=== PATIENT | female | born 1995 | race Hispanic/Latino ===

== ENCOUNTER 2017-06-16 20:43 | Inpatient (IN) | payer OTHER ==
[2017-06-16 20:59] VITALS: BMI 23.7
[2017-06-16] MEDS ORDERED: Lactated Ringer's 1,000 ML IV SCH (21:15)
[2017-06-16 21:48] LABS: BASO % 0.4 % (0.0-2.0); EOS # 0.1 K/uL (0.0-0.7); EOS % 0.5 % (0.0-4.0); HEMOGLOBIN 9.7 g/dL (12.0-16.0); LYMPH # 1.6 K/uL (1.0-4.3); LYMPH % 13.3 % (20.0-40.0); MEAN CELL VOLUME 76.2 fl (81.0-99.0); MEAN CORPUSCULAR HEMOGLOBIN 24.4 pg (27.0-31.0); MEAN CORPUSCULAR HGB CONC 32.1 g/dL (33.0-37.0); MEAN PLATELET VOLUME 8.6 fl (7.2-11.7); MONO # 0.7 K/uL (0.0-0.8); NEUT # 9.4 K/uL (1.8-7.0); NEUT % 79.8 % (50.0-75.0); NRBC % 0.1 % (0.0-0.0); RBC 3.98 Mil/uL (3.80-5.20); RED CELL DISTRIBUTION WIDTH 16.1 % (11.5-14.5); WHITE BLOOD COUNT 11.7 K/uL (4.8-10.8)
[2017-06-16 22:05] VITALS: O2SAT 100
[2017-06-17] MEDS: Lactated Ringer's 1,000 ML IV SCH ×2 (03:55→04:15)
[2017-06-17] MEDS ORDERED: Fentanyl/Bupivacaine HCl 125 ML EPI ONE (04:46)
[2017-06-17] MEDS ORDERED: Bupivacaine HCl 0.25% PF (10 ml) Inj ONE (05:10)
--- NOTE | 2017-06-17 08:05 | OBPN ---
Datetime: 06/17/2017 07:30 IP Progress Impression: Reassuring heart rate IP Informed Consent Obtain: Vaginal Delivery; Risks, Benefits and Alternatives Discussed IP Procedures: Artificial ROM IP Progress Plan: Continue present management; Augmentation Pool Provider: Positive Membranes, Provider: Ruptured Amniotic Fluid Color, Provider: Clear Contraction Comments Provider: 2-3m FHR - Baseline A Provider: 120 Presentation-Admit: Vertex IP Progress Note Comment: Last night she statrted to have CTX pain and rec'd epidural. Pitocin at 4 miu/h currently A: Latent phase of labor PLAN Discussion with pt and she agreed...AROM and clear Fluid noted for augmentation NICHD Accel Fetus A IP Provider: 15X15 FHR Category Provider Fetus A: Category I NICHD Variability Prov Fetus A: Moderate 6-25bpm Dilatation, Provider: 3 Effacement, Provider: 50 Station, Provider: -1 NICHD Decel Fetus A IP Provider: None Datetime: 06/16/2017 21:07 Vital Signs Provider: Reviewed
--- NOTE | 2017-06-17 09:00 | OBHP ---
Datetime: 06/17/2017 07:30 FHR - Baseline A Provider: 120 Amniotic Fluid Color, Provider: Clear Contraction Comments Provider: 2-3m NICHD Variability Prov Fetus A: Moderate 6-25bpm NICHD Accel Fetus A IP Provider: [id number] FHR Category Provider Fetus A: Category I Dilatation, Provider: 3 Effacement, Provider: 50 Station, Provider: -1 Datetime: 06/16/2017 21:24 IP Chief Complaint Other: Polyhydramnios IP Hx Assessment: The History has been Reviewed and is Current EGA AdmitDate IP: 37.6 IP Indication for Induction: Polyhydramnios IP Chief Complaint: Uterine contractions Datetime: 06/16/2017 21:07 IP Adm Impression: Term, intrauterine ; No Active Labor; Intact Membranes IP Admit Plan: Admit to unit; Initiate labor protocol Admit Comment, IP Provider: TRIAGE NOTE: 22 y/o F at 37.6 weeks GA, BLANCA 07/01/17 by LMP 09/24/16, presents due to lower abdominal pain and intermittent uterine CTX. CTX's began a few hours ago, becoming more frequent and progressively aggravating. No LOF or VB. FM present. Pt denies fever, headache, dizziness, visual disturbances, CP, SOB, N/V, pruritus or calf tenderness -All systems reviewed and negative except as above. -NKDA -Meds: PNV -PN Care: Dr Adkins at [facility]. -PN Labs: US on 06/16/17 showed cephalic presentation, BPP 8/8, YUNIEL 33.3-polyhydramnios. GBS pendi ng. -OBHx: . 1x at FT. -PMHx: denied -PSHx: denied -FHx: NC -SHx: denies tobacco, alcohol or rec drugs. A/P 22 y/o F with IUP at 37.6 weeks GA, with CTX and polyhydramnios. --FHT continous monitoring --Admit to L and D. Case discussed with Dr Blanchard, OB transportation dispatch manager GTolentino PGY-1. OB Hospitalist on-call...Pt seen and examined...latent phase of labor/polyhydramnios - Discussion with patient about augmentatoin, medications, risks/complications, labor, delivery and . H er questoins answered Pelvic Type - PN: Adequate Extremities - PN: Normal Back - PN: Normal Lungs - PN: Normal Heart - PN: Normal Thyroid - PN: Normal Neurologic - PN: Normal HEENT - PN: Normal General - PN: Normal Presentation-Admit: Vertex Membranes, Provider: Intact Pool Provider: Negative Vital Signs Provider: Reviewed NICHD Decel Fetus A IP Provider: None Genitourinary Exam: Normal
--- NOTE | 2017-06-17 09:03 | OBADHP ---
Datetime: 06/17/2017 07:30 FHR - Baseline A Provider: 120 Amniotic Fluid Color, Provider: Clear Contraction Comments Provider: 2-3m NICHD Variability Prov Fetus A: Moderate 6-25bpm NICHD Accel Fetus A IP Provider: [id number] FHR Category Provider Fetus A: Category I Dilatation, Provider: 3 Effacement, Provider: 50 Station, Provider: -1 Datetime: 06/16/2017 21:24 IP Chief Complaint Other: Polyhydramnios Admit Comment, IP Provider: ADMISSION NOTE: 22 y/o F at 37.6 weeks GA, BLANCA 07/01/17 by LMP 09/24/16, presents due to lower abdominal pain and intermittent uterine CTX. CTX's began a few hours ago, becoming more frequent and progressively aggravating. No LOF or VB. FM present. Pt denies fever, headache, dizziness, visual disturbances, CP, SOB, N/V, pruritus or calf tenderness -All systems reviewed and negative except as above. -NKDA -Meds: PNV -PN Care: Dr Adkins at [facility]. -PN Labs: US on 06/16/17 showed cephalic presentation, BPP 8/8, YUNIEL 33.3-polyhydramnios. GBS pendi ng. -OBHx: . 1x at FT. -PMHx: denied -PSHx: denied -FHx: NC -SHx: denies tobacco, alcohol or rec drugs. A/P 22 y/o F with IUP at 37.6 weeks GA, with CTX's and polyhydramnios. --Admit to L and D. --Initiate IOL protocol --Pitocin for labor induction. Case discussed with Dr Blanchard, OB administration specialist Sal PGY-1. OB Hospitalist on-call...Pt seen and examined...latent phase of labor/polyhydramnios - Discussion with patient about augmentatoin, medications, risks/complications, labor, delivery and . Hilaria metz answered - correction EDC Apr 1 (38weeks) BREA GUERRERO Hx Assessment: The History has been Reviewed and is Current IP Chief Complaint: Uterine contractions EGA AdmitDate IP: 37.6 Datetime: 06/16/2017 21:07 Pelvic Type - PN: Adequate Extremities - PN: Normal Back - PN: Normal Lungs - PN: Normal Heart - PN: Normal Thyroid - PN: Normal Neurologic - PN: Normal HEENT - PN: Normal General - PN: Normal Presentation-Admit: Vertex Membranes, Provider: Intact Pool Provider: Negative Vital Signs Provider: Reviewed NICHD Decel Fetus A IP Provider: None Genitourinary Exam: Normal IP Adm Impression: Term, intrauterine ; No Active Labor; Intact Membranes IP Admit Plan: Admit to unit; Initiate labor protocol
--- NOTE | 2017-06-17 09:36 | OBDS ---
DELIV[facility]ERSONNEL Delivery Doctor: Ezequiel Adkins MD Administrative Program Specialist: Shani Trixie RN MATERNAL INFORMATION Delivery Anesthesia: Epidural Medications in Delivery: Pitocin 30 mu/500 mL Estimated Blood Loss (ml): 100 Placenta Cultured: No Maternal Complications: None Provider Comments: Delivered a live baby girl at 8:46 AM the baby was bulb suctioned on the perineum and transferred to the maternal chest. The cord was clamped and cut 3 vessels noted cord blood was o btained and sent to the lab. The placenta was delivered at 8:51 AM intact, the estimated blood loss w as 100 mL. There were no vaginal lacerations. The mother tolerated the procedure well the baby went t o the well baby nursery with Apgars of 9 and 9 weighing 3110 g LABOR SUMMARY EDC: 07/01/2017 00:00 No. Babies in Womb: 1 Attempted: No Labor Anesthesia: Epidural LABOR INFORMATION Reason for Induction: Polyhydramnios Onset of Labor: 06/17/2017 08:23 Complete Dilatation: 06/17/2017 08:23 Oxytocin: Induction Group B Beta Strep: Done, Result Unknown Antibiotics # of Doses: 0 Antibiotics Time of Last Dose: n/a Steroids Given: None Reason Steroids Not Administered: Not Applicable MEMBRANES Membranes Rupture Method: Artificial Rupture of Membranes: 06/17/2017 07:30 Length of Rupture (hrs): 1.27 Amniotic Fluid Color: Clear Amniotic Fluid Amount: Large STAGES OF LABOR Stage 1 hrs: 0 Stage 1 min: 0 Stage 2 hrs: 0 Stage 2 min: 23 Stage 3 hrs: 0 Stage 3 min: 5 Total Time in Labor hrs: 0 Total Time in Labor min: 28 VAGINAL DELIVERY Episiotomy: None Laceration Extension: N/A Laceration Type: None Laceration Repair: Not Applicable Initial Vag Sponge Count: 5 Final Vag Sponge Count: 5 Initial Vag Sharps Count: 0 Final Vag Sharps Count: 0 Sponge Count Correct: Yes Sharps Count Correct: N/A BABY A INFORMATION Infant Delivery Date/Time: 06/17/2017 08:46 Method of Delivery: Vaginal Born in Route : No : N/A Forceps: N/A Vacuum Extraction: N/A Shoulder Dystocia : No SHOULDER DYSTOCIA BABY A Infant Delivery Date/Time: 06/17/2017 08:46 PRESENTATION/POSITION BABY A Presentation: Cephalic Cephalic Presentation: Vertex Breech Presentation: N/A PLACENTA INFORMATION BABY A Placenta Delivery Time : 06/17/2017 08:51 Placenta Method of Delivery: Spontaneous Placenta Status: Delivered SCORES BABY A Heart Rate 1 min: >100 bpm Resp Effort 1 min: Good Cry Reflex Irritability 1 min: Cough or Sneeze or Pulls Away Muscle Tone 1 min: Active Motion Color 1 min: Body Freer, Extremities Blue Resuscitation Effort 1 min: N/A SCORE 1 MIN: 9 Heart Rate 5 min: >100 bpm Resp Effort 5 min: Good Cry Reflex Irritability 5 min: Cough or Sneeze or Pulls Away Muscle Tone 5 min: Active Motion Color 5 min: Body Freer, Extremities Blue Resuscitation Effort 5 min: N/A SCORE 5 MIN: 9 INFANT INFORMATION BABY A Gestational Age at Delivery: 38.0 Gestational Status: Term Outcome : Liveborn Infant Condition : Stable Infant Sex: Female IDENTIFICATION/MEDS BABY A ID Band Location: Left Leg; Left Arm WEIGHT/LENGTH BABY A Infant Birthweight (gms): 3110 Infant Weight (lb): 6 Weight (oz): 14 CORD INFORMATION BABY A No. Cord Vessels: 3 Nuchal Cord : N/A Cord Blood Taken: Yes Suction: Mouth
[2017-06-17] MEDS ORDERED: Oxycodone/Acetaminophen 5/325 mg Tab PO PRN (11:35)
[2017-06-17] MEDS ORDERED: Benzocaine/Menthol SPRAY TOP PRN (11:35)
[2017-06-18 06:44] LABS: HEMOGLOBIN 8.5 g/dL (12.0-16.0); MEAN CELL VOLUME 76.8 fl (81.0-99.0); MEAN CORPUSCULAR HEMOGLOBIN 25.2 pg (27.0-31.0); MEAN CORPUSCULAR HGB CONC 32.8 g/dL (33.0-37.0); RBC 3.35 Mil/uL (3.80-5.20); WHITE BLOOD COUNT 9.4 K/uL (4.8-10.8)
--- NOTE | 2017-06-18 09:22 | OBPPN ---
Datetime: 06/18/2017 09:19 PP Abdomen/Uterus Prov: Normal PP Lochia Prov: Normal PP Extremities Prov: Normal PP Progress Prov: Not Applicable PP Impression Prov: Normal progression PP Plan Prov: Continue present management PP Progress Note Prov: PPD 1 s/p , doing well, bottle feeding Continue current care Vital Signs Provider PP: Reviewed
--- NOTE | 2017-06-18 10:42 | OBHP ---
Datetime: 06/16/2017 21:24 Admit Comment, IP Provider: ADMISSION NOTE: 22 y/o F at 37.6 weeks GA, BLANCA 07/01/17 by LMP 09/24/16, presents due to lower abdominal pain and intermittent uterine CTX. CTX's began a few hours ago, becoming more frequent and progressively aggravating. No LOF or VB. FM present. Pt denies fever, headache, dizziness, visual disturbances, CP, SOB, N/V, pruritus or calf tenderness -All systems reviewed and negative except as above. -NKDA -Meds: PNV -PN Care: Dr Adkins at [facility]. -PN Labs: US on 06/16/17 showed cephalic presentation, BPP 8/8, YUNIEL 33.3-polyhydramnios. GBS pendi ng. -OBHx: . 1x at FT. -PMHx: denied -PSHx: denied -FHx: NC -SHx: denies tobacco, alcohol or rec drugs. A/P 22 y/o F with IUP at 37.6 weeks GA, with CTX's and polyhydramnios. --Admit to L and D. --Initiate IOL protocol --Pitocin for labor induction. Case discussed with Dr Blanchard, OB bone tender GTolentino PGY-1. OB Hospitalist on-call...Pt seen and examined...latent phase of labor/polyhydramnios - Discussion with patient about augmentatoin, medications, risks/complications, labor, delivery and . H er isaías answered - correction EDC Jun 1 (38weeks) BREA COE AdmitDate IP: 37.6
--- NOTE | 2017-06-19 10:45 | OBDCSUM ---
Datetime: 06/19/2017 10:43 Discharged to, Provider: Home Follow up at, Provider: Jarek Disch Instr Activity: Normal activity Disch Instr Diet: Regular Discharge Instructions, Provider: Routine instructions given Discharge Diagnosis, Provider: Term Delivered Follow up in weeks, Provider: 6 weeks Disch Referrals: None Contraception discussed, Prov: Yes Disch Activity Restrictions: No sexual activity; Nothing in vagina - [place], tampons, douche
--- NOTE | 2017-06-19 10:45 | OBPPN ---
Datetime: 06/19/2017 10:42 PP Pain Prov: Within normal limits PP Nausea Prov: Denies PP Flatus Prov: Yes PP BM Prov: Yes PP Breasts Prov: Normal PP Heart Prov: Normal PP Lungs Prov: Normal PP Abdomen/Uterus Prov: Normal PP Lochia Prov: Normal PP Vulva/Perineum Prov: Normal PP CVA Tenderness Prov: Normal PP Extremities Prov: Normal PP Progress Prov: Normal PP Impression Prov: Normal progression PP Plan Prov: Continue present management PP Progress Note Prov: She is ready to go home. Tolerating deit and ambulating without difficulty. A: S/P day 2 PLAN discharge home and follow up in 6w Vital Signs Provider PP: Reviewed; Within Normal Limits
[2017-06-19 15:57] VITALS: BP 120/78; PULSE 66; RESP 20; TEMP 98.8
== END 2017-06-19 11:17 | disposition home or self-care (01) | DRG 373 ==
LOC: H.EROB2 20:43 → H.L&D 21:11 → H.OB/GYN 06-17 10:50
PROVIDERS: ADMIT Obstetrics & Gynecology; ATTEND Obstetrics & Gynecology
PROC: 10E0XZZ Delivery of Products of Conception, External Approach (ICD-10-PCS; principal; 2017-06-16)
PROC: 4A1HXCZ Monitoring of Products of Conception, Cardiac Rate, External Approach (ICD-10-PCS; 2017-06-16)
DX: O40.3XX0 Polyhydramnios, third trimester, not applicable or unspecified (principal); Z37.0 Single live birth; Z3A.38 38 weeks gestation of pregnancy